=== PATIENT | male | born 1950 | race Two or more races ===

== ENCOUNTER 2018-06-04 12:22 | Emergency (ER) | payer OTHER ==
[~2018-06-04] VITALS: Ht 172.7 cm; Wt 72.6 kg
[~2018-06-04 12:22] MED LIST: AVALIDE 150-12.1 TA1
[2018-06-04] MEDS ORDERED: CIPRO500 MG PO (15:42)
[2018-06-04] MEDS ORDERED: PYRIDIUM200 MG PO (15:44)
== END 2018-06-04 16:30 | disposition home or self-care (01) ==
LOC: ER 12:22
DX: N39.0 Urinary tract infection, site not specified (principal)

== ENCOUNTER 2018-09-13 11:57 | Emergency (ER) | payer OTHER ==
[~2018-09-13] VITALS: Ht 172.7 cm; Wt 77.1 kg
[~2018-09-13 11:57] MED LIST changes: +CIPRO500 MG PO; +PYRIDIUM200 MG PO
[2018-09-13] MEDS ORDERED: [UNRECOGNIZED DRUG - OTHER] (12:27)
[2018-09-13] MEDS ORDERED: NORFLEX100MG PO (13:53)
[2018-09-13] MEDS ORDERED: IBUPROFEN800 MG PO (13:53)
== END 2018-09-13 14:09 | disposition home or self-care (01) ==
LOC: ER 11:57
DX: M54.5 Low back pain (principal)

== ENCOUNTER 2019-06-01 18:05 | Emergency (ER) | payer OTHER ==
[~2019-06-01] VITALS: Ht 172.7 cm; Wt 72.6 kg
[~2019-06-01 18:05] MED LIST changes: +IBUPROFEN800 MG PO; +NORFLEX100MG PO; +[UNRECOGNIZED DRUG - OTHER]
[2019-06-01] MEDS ORDERED: LANTUS SOL100 UNIT/1 (18:17)
== END 2019-06-01 22:22 | disposition home or self-care (01) ==
LOC: ER 18:05
DX: N39.0 Urinary tract infection, site not specified (principal)

== ENCOUNTER 2019-08-14 14:42 | Outpatient (CLI) | payer OTHER ==
[~2019-08-14 14:42] MED LIST changes: +LANTUS SOL100 UNIT/1
== END 2019-08-14 14:56 | disposition home or self-care (01) ==
LOC: RAD 14:42
DX: M54.5 Low back pain (principal)

== ENCOUNTER 2020-04-30 16:42 | Emergency (ER) | payer OTHER ==
[~2020-04-30] VITALS: Ht 172.7 cm; Wt 72.6 kg
[2020-04-30] MEDS ORDERED: FENOFIBRATE145 MG PO (17:35)
[2020-04-30] MEDS ORDERED: LANTUS SOL100 UNIT/1 SQ (17:35)
[2020-04-30] MEDS ORDERED: JENTADUETO 2.51 EAC2 PO (17:35)
[2020-04-30] MEDS ORDERED: AMLODIPINE BESYL5 MG PO (17:35)
[2020-04-30] MEDS ORDERED: SIMVASTATIN20 MG PO (17:35)
[2020-04-30] MEDS ORDERED: GLIMEPIRIDE1 M1 PO (17:36)
[2020-04-30] MEDS ORDERED: IRBESARTAN-HCT1 EAC1 PO (17:36)
== END 2020-04-30 19:08 | disposition home or self-care (01) ==
LOC: ER 16:42
DX: R30.0 Dysuria (principal)

== ENCOUNTER 2020-12-10 13:44 | Emergency (ER) | payer OTHER ==
[~2020-12-10] VITALS: Ht 172.7 cm; Wt 72.6 kg
[~2020-12-10 13:44] MED LIST changes: +AMLODIPINE BESYL5 MG PO; +FENOFIBRATE145 MG PO; +GLIMEPIRIDE1 M1 PO; +IRBESARTAN-HCT1 EAC1 PO; +JENTADUETO 2.51 EAC2 PO; +LANTUS SOL100 UNIT/1 SQ; +SIMVASTATIN20 MG PO
== END 2020-12-10 20:53 | disposition home or self-care (01) ==
LOC: ER 13:44
DX: M79.601 Pain in right arm (principal); M25.511 Pain in right shoulder

== ENCOUNTER 2021-05-20 12:24 | Outpatient (CLI) | payer OTHER | END 2021-05-20 12:51 | disposition home or self-care (01) | LOC: RAD 12:24 | DX: R07.89 Other chest pain (principal); Z11.1 Encounter for screening for respiratory tuberculosis ==

== ENCOUNTER 2021-08-22 10:45 | Outpatient (CLI) | payer OTHER | END 2021-08-22 11:09 | disposition home or self-care (01) | LOC: RAD 10:45 | DX: M25.511 Pain in right shoulder (principal) ==

== ENCOUNTER 2023-01-03 14:49 | Outpatient (CLI) | payer OTHER | END 2023-01-03 14:57 | disposition home or self-care (01) | LOC: RAD 14:49 | DX: I70.0 Atherosclerosis of aorta (principal) ==

== ENCOUNTER 2024-04-27 14:13 | Inpatient (IN) | payer OTHER ==
[~2024-04-27] VITALS: Ht 175.3 cm; Wt 81.6 kg
--- NOTE | 2024-04-27 14:34 | NUR ---
PTE REFEIRE DOLOR EN COSTADO DERECHO SE LE MATT S/V Y SE UBICA.
--- NOTE | 2024-04-27 15:28 | NUR ---
SE LE ORIENTA A PACIENTE SOBRE LA ORDEN MEDICA, REFIERE ENTENDER LAS MISMAS. SE LE MADDY LAS MUETRAS CORNELIUS LA ORDEN MEDICA.
[2024-04-27 15:45] LABS: URINE APPEARANCE Clear; URINE BILIRRUBIN Negative (NEGATIVE); URINE BLOOD Large; URINE COLOR Yellow; URINE GLUCOSE Negative (NEGATIVE); URINE KETONE Trace (NEGATIVE); URINE LEUKOCYTE Trace; URINE NITRATE Negative; URINE PROTEIN Trace (NEGATIVE); URINE UROBILINOGEN 0.2 E.U./dl
[2024-04-27 15:49] LABS: URINE BACTERIA 28.9 uL (0.0-1933); URINE CAST 0.91 uL (0.0-1.40); URINE EPITHELIAL CELLS 5.1 uL (0.0-38.8); URINE RBC 272.8 uL (0.0-20.8); URINE WBC 5.5 uL (0.0-23.2)
[2024-04-27 15:51] LABS: HEMATOCRIT 36.6 % (39.0-48.0); HEMOGLOBIN 12.4 g/dL (13-16.00); MEAN CELL VOLUME 88.2 fL (80.0-100.00); MEAN CORPUSCULAR HEMOGLOBIN 29.9 pg (27.00-32.0); PLATELET COUNT 327 K/uL (150-450); RED BLOOD COUNT 4.15 M/uL (4.00-6.00); RED CELL DISTRIBUTION WIDTH 14.2 % (11.5-14.5)
[2024-04-27 16:08] LABS: CALCIUM 9.7 mg/dL (8.5-10.1); CREATININE SERUM 1.57 mg/dL (0.70-1.30); GFR 43.52; POTASSIUM 3.94 mEq/L (3.5-5.1)
[2024-04-27] MEDS ORDERED: ONDANSETRON HCL 2 MG/ML VIAL IV ONE (16:45)
[2024-04-27] MEDS ORDERED: 0.9 % SODIUM CHLORIDE 500 ML IV ONE (16:45)
[2024-04-27] MEDS ORDERED: KETOROLAC TROMETHAMINE 15 MG VIAL IV ONE (16:45)
[2024-04-27] MEDS ORDERED: KETOROLAC TROMETHAMINE 30 MG VIAL ONE (16:52)
[2024-04-27] MEDS ORDERED: ONDANSETRON HCL 2 MG/ML VIAL ONE (16:52)
[2024-04-27] MEDS ORDERED: CIPROFLOXACIN IN 5 % DEXTROSE 400 MG/200 ML PIGGYBAG IV ONE ×2 (17:45→17:52)
[2024-04-27] MEDS ORDERED: TAMSULOSIN HCL 0.4 MG CAP PO ONE ×2 (17:45→17:51)
[2024-04-27 20:03] LABS: HEMATOCRIT 34.8 % (39.0-48.0); HEMOGLOBIN 11.8 g/dL (13-16.00); MEAN CELL VOLUME 87.5 fL (80.0-100.00); MEAN CORPUSCULAR HEMOGLOBIN 29.7 pg (27.00-32.0); MEAN CORPUSCULAR HGB CONC 33.9 g/dl (32.0-36.0); PLATELET COUNT 337 K/uL (150-450); RED BLOOD COUNT 3.98 M/uL (4.00-6.00)
[2024-04-27] MEDS ORDERED: 0.9 % SODIUM CHLORIDE 1,000 ML IV SCH (21:00)
[2024-04-27] MEDS ORDERED: KETOROLAC TROMETHAMINE 15 MG VIAL IU PRN (21:00)
[2024-04-27] MEDS ORDERED: ACETAMINOPHEN 325 MG TABLET PO PRN (21:00)
[2024-04-27] MEDS ORDERED: INSULIN LISPRO 1,000 UNIT/10 ML UNITS SUBCUTANEO PRN (21:15)
[2024-04-27] MEDS ORDERED: DEXTROSE 50 % IN WATER 0.5 G/ML DISP.SYRIN IV PRN (21:15)
[2024-04-27 21:47] VITALS: BP 125/76
[2024-04-27 23:01] VITALS: BP 122/77; O2SAT 98
[2024-04-28 04:22] VITALS: BP 123/79; O2SAT 97
[2024-04-28] MEDS ORDERED: KETOROLAC TROMETHAMINE 30 MG VIAL IV PRN (07:45)
[2024-04-28] MEDS ORDERED: ACETAMINOPHEN 500 MG GEL..CAP PO PRN (07:45)
[2024-04-28 07:51] LABS: HEMATOCRIT 32.4 % (39.0-48.0); HEMOGLOBIN 11.1 g/dL (13-16.00); MEAN CORPUSCULAR HEMOGLOBIN 29.9 pg (27.00-32.0); MEAN CORPUSCULAR HGB CONC 34.4 g/dl (32.0-36.0); PLATELET COUNT 296 K/uL (150-450); RED BLOOD COUNT 3.72 M/uL (4.00-6.00); RED CELL DISTRIBUTION WIDTH 14.2 % (11.5-14.5)
[2024-04-28] MEDS ORDERED: levoFLOXacin IN DEXTROSE 5 % 150 ML IV SCH (09:00)
[2024-04-28] MEDS ORDERED: IRBESARTAN 300 MG TABLET PO SCH (09:00)
[2024-04-28] MEDS ORDERED: HYOSCYAMINE SULFATE 0.125 MG TAB.SUBL SL SCH (09:00)
[2024-04-28] MEDS ORDERED: TAMSULOSIN HCL 0.4 MG CAP PO SCH (09:00)
[2024-04-28 09:06] LABS: ALBUMIN 3.5 gm/dL (3.4-5.0); BILIRUBIN TOTAL 0.33 mg/dL (0.3-1.2); CALCIUM 8.8 mg/dL (8.5-10.1); CREATININE SERUM 2.35 mg/dL (0.70-1.30); GFR 27.32; POTASSIUM 4.15 mEq/L (3.5-5.1); TOTAL PROTEIN 6.5 gm/dL (6.4-8.2)
[2024-04-28 09:21] VITALS: BP 134/76
[2024-04-28 17:01] VITALS: BP 135/76
[2024-04-28] MEDS ORDERED: INSULIN GLARGINE,HUM.REC.ANLOG 1,000 UNITS/10 ML UNITS SUBCUTANEO SCH (21:00)
[2024-04-28] MEDS ORDERED: AMLODIPINE BESYLATE 5 MG TABLET PO SCH (21:00)
[2024-04-29 01:48] VITALS: BP 114/70; O2SAT 97
[2024-04-29 07:49] LABS: HEMATOCRIT 29.9 % (39.0-48.0); HEMOGLOBIN 10.3 g/dL (13-16.00); MEAN CELL VOLUME 86.8 fL (80.0-100.00); MEAN CORPUSCULAR HEMOGLOBIN 29.9 pg (27.00-32.0); MEAN CORPUSCULAR HGB CONC 34.4 g/dl (32.0-36.0); PLATELET COUNT 261 K/uL (150-450); RED BLOOD COUNT 3.44 M/uL (4.00-6.00); RED CELL DISTRIBUTION WIDTH 14.4 % (11.5-14.5)
[2024-04-29 08:15] LABS: ALBUMIN 3.2 gm/dL (3.4-5.0); CALCIUM 8.4 mg/dL (8.5-10.1); CREATININE SERUM 2.39 mg/dL (0.70-1.30); GFR 26.8; PHOSPHOROUS 2.8 mg/dL (2.5-4.9); POTASSIUM 4.39 mEq/L (3.5-5.1)
[2024-04-29] MEDS ORDERED: hydrALAZINE HCL 20 MG VIAL IV PRN (08:15)
[2024-04-29 08:26] LABS: URINE APPEARANCE Clear; URINE BILIRRUBIN Negative (NEGATIVE); URINE BLOOD Negative; URINE COLOR Yellow; URINE KETONE Negative (NEGATIVE); URINE LEUKOCYTE Negative; URINE NITRATE Negative; URINE PROTEIN Negative (NEGATIVE); URINE UROBILINOGEN 0.2 E.U./dl
[2024-04-29] MEDS ORDERED: MEPERIDINE HCL/PF 50 MG/ML VIAL IV PRN (08:30)
[2024-04-29 08:32] LABS: URINE CAST 0.15 uL (0.0-1.40); URINE EPITHELIAL CELLS 0.6 uL (0.0-38.8); URINE GLUCOSE 500 MG/DL (NEGATIVE); URINE RBC 0.1 uL (0.0-20.8); URINE WBC 1.6 uL (0.0-23.2)
[2024-04-29 08:54] VITALS: BP 112/74
[2024-04-29 17:27] VITALS: BP 115/70; O2SAT 97
[2024-04-30 02:52] VITALS: BP 140/76
[2024-04-30 06:42] LABS: ALBUMIN 2.9 gm/dL (3.4-5.0); CALCIUM 7.9 mg/dL (8.5-10.1); CREATININE SERUM 2.33 mg/dL (0.70-1.30); GFR 27.6; PHOSPHOROUS 2.5 mg/dL (2.5-4.9); POTASSIUM 3.99 mEq/L (3.5-5.1)
[2024-04-30] MEDS ORDERED: levoFLOXacin IN DEXTROSE 5 % 150 ML IV SCH (09:00)
[2024-04-30 09:37] VITALS: BP 144/70; O2SAT 96
[2024-04-30 19:22] VITALS: BP 131/68
[2024-05-01 03:06] VITALS: BP 145/80; O2SAT 98
[2024-05-01] MEDS ORDERED: FUROsemide 40 MG/4 ML VIAL IV STA (08:12)
[2024-05-01 08:32] LABS: ABG PH 7.383 (7.35-7.45); ABG PO2 85.9 mmHg (80-100); ABG pCO2 31.7 mmHg (35-45); BASE EXCESS -5.4 mmol/l; BICARBONATE 18.4 mmol/l (23-25); SaO2 96.1 %; Tco2 19.4 mmol/l
[2024-05-01 08:33] LABS: allen test SATISFACTORY; o2 32 %; puncture site RADIAL RIGHT
[2024-05-01 08:54] LABS: HEMATOCRIT 33.1 % (39.0-48.0); HEMOGLOBIN 11.2 g/dL (13-16.00); MEAN CELL VOLUME 86.7 fL (80.0-100.00); MEAN CORPUSCULAR HEMOGLOBIN 29.4 pg (27.00-32.0); MEAN CORPUSCULAR HGB CONC 33.9 g/dl (32.0-36.0); PLATELET COUNT 278 K/uL (150-450); RED BLOOD COUNT 3.82 M/uL (4.00-6.00); RED CELL DISTRIBUTION WIDTH 14.7 % (11.5-14.5)
[2024-05-01 09:35] LABS: ALBUMIN 3.3 gm/dL (3.4-5.0); CALCIUM 8.7 mg/dL (8.5-10.1); CREATININE SERUM 2.12 mg/dL (0.70-1.30); GFR 30.77; PHOSPHOROUS 3.1 mg/dL (2.5-4.9); POTASSIUM 4.27 mEq/L (3.5-5.1)
[2024-05-01 09:57] VITALS: BP 148/86
[2024-05-01 10:30] LABS: URINE APPEARANCE Clear; URINE BILIRRUBIN Negative (NEGATIVE); URINE BLOOD Small; URINE COLOR Yellow; URINE KETONE Trace (NEGATIVE); URINE LEUKOCYTE Negative; URINE NITRATE Negative; URINE PROTEIN Negative (NEGATIVE); URINE UROBILINOGEN 0.2 E.U./dl
[2024-05-01 10:32] LABS: URINE BACTERIA 23.9 uL (0.0-1933); URINE CAST 1.83 uL (0.0-1.40); URINE EPITHELIAL CELLS 3.2 uL (0.0-38.8); URINE RBC 6.5 uL (0.0-20.8); URINE WBC 4.6 uL (0.0-23.2)
[2024-05-01 10:58] LABS: URINE GLUCOSE 100 MG/DL (NEGATIVE)
[2024-05-01 19:13] VITALS: BP 150/79
[2024-05-02 02:24] VITALS: BP 150/86
[2024-05-02 05:52] LABS: ALBUMIN 2.7 gm/dL (3.4-5.0); BILIRUBIN TOTAL 0.42 mg/dL (0.3-1.2); CALCIUM 8.5 mg/dL (8.5-10.1); CREATININE SERUM 2.08 mg/dL (0.70-1.30); GFR 31.46; MAGNESIUM 1.9 mg/dL (1.8-2.4); PHOSPHOROUS 3.4 mg/dL (2.5-4.9); POTASSIUM 4.29 mEq/L (3.5-5.1); TOTAL PROTEIN 5.7 gm/dL (6.4-8.2)
[2024-05-02 05:54] LABS: C-REACTIVE PROTEIN 8.71 MG/DL (0.00-0.29)
[2024-05-02 06:17] LABS: HEMATOCRIT 28.1 % (39.0-48.0); HEMOGLOBIN 9.7 g/dL (13-16.00); MEAN CELL VOLUME 88.2 fL (80.0-100.00); MEAN CORPUSCULAR HEMOGLOBIN 30.4 pg (27.00-32.0); MEAN CORPUSCULAR HGB CONC 34.5 g/dl (32.0-36.0); PLATELET COUNT 270 K/uL (150-450); RED BLOOD COUNT 3.18 M/uL (4.00-6.00); RED CELL DISTRIBUTION WIDTH 14.4 % (11.5-14.5)
[2024-05-02 09:44] VITALS: BP 158/90; O2SAT 97
[2024-05-02] MEDS ORDERED: ALBUTEROL SULFATE 3 ML/2.5 MG AMPUL.NEB IH SCH (10:21)
[2024-05-02] MEDS ORDERED: ORPHENADRINE CITRATE 30 MG/ML AMPUL IV NR (11:00)
[2024-05-02] MEDS ORDERED: hydrALAZINE HCL 50 MG TABLET PO SCH (17:00)
[2024-05-02 18:07] VITALS: BP 125/82; O2SAT 98
[2024-05-02] MEDS ORDERED: ORPHENADRINE CITRATE 30 MG/ML AMPUL IV SCH (21:00)
[2024-05-02] MEDS ORDERED: AMLODIPINE BESYLATE 10 MG TABLET PO SCH (21:00)
[2024-05-03 01:59] VITALS: BP 152/92
[2024-05-03 06:41] LABS: HEMATOCRIT 27.8 % (39.0-48.0); MEAN CELL VOLUME 86.8 fL (80.0-100.00); MEAN CORPUSCULAR HGB CONC 34.4 g/dl (32.0-36.0); PLATELET COUNT 271 K/uL (150-450); RED CELL DISTRIBUTION WIDTH 14.1 % (11.5-14.5)
[2024-05-03 07:30] LABS: HEMOGLOBIN 9.6 g/dL (13-16.00)
[2024-05-03 07:45] LABS: ALBUMIN 2.8 gm/dL (3.4-5.0); BILIRUBIN TOTAL 0.46 mg/dL (0.3-1.2); CREATININE SERUM 2.34 mg/dL (0.70-1.30); GFR 27.46; GLOBULINA 3.2 G/DL (2.4-3.5); POTASSIUM 4.42 mEq/L (3.5-5.1)
[2024-05-03] MEDS ORDERED: FUROsemide 20 MG TABLET PO SCH (09:00)
[2024-05-03 10:09] VITALS: BP 147/82
[2024-05-03 16:35] VITALS: BP 145/84
[2024-05-03 20:30] VITALS: BP 144/84
[2024-05-03] MEDS ORDERED: hydrALAZINE HCL 50 MG TABLET PO SCH (21:00)
[2024-05-04 02:17] VITALS: BP 151/97; O2SAT 100
[2024-05-04 07:59] LABS: HEMATOCRIT 26.8 % (39.0-48.0); HEMOGLOBIN 9.6 g/dL (13-16.00); MEAN CELL VOLUME 84.5 fL (80.0-100.00); MEAN CORPUSCULAR HEMOGLOBIN 30.4 pg (27.00-32.0); PLATELET COUNT 269 K/uL (150-450); RED BLOOD COUNT 3.17 M/uL (4.00-6.00); RED CELL DISTRIBUTION WIDTH 14.6 % (11.5-14.5)
[2024-05-04 08:46] LABS: ALBUMIN 2.8 gm/dL (3.4-5.0); CALCIUM 8.5 mg/dL (8.5-10.1); CREATININE SERUM 2.24 mg/dL (0.70-1.30); GFR 28.88; PHOSPHOROUS 3.9 mg/dL (2.5-4.9); POTASSIUM 4.03 mEq/L (3.5-5.1)
[2024-05-04 09:34] VITALS: BP 153/97
[2024-05-04 18:34] VITALS: BP 150/88
[2024-05-05 03:36] VITALS: BP 140/89; O2SAT 97
[2024-05-05] MEDS ORDERED: FUROsemide 20 MG/2 ML VIAL IV SCH (09:00)
[2024-05-05] MEDS ORDERED: AMLODIPINE BESYLATE 5 MG TABLET PO SCH (09:00)
[2024-05-05 09:05] VITALS: BP 150/90
[2024-05-05 18:17] VITALS: BP 160/83; O2SAT 100
[2024-05-06 02:20] VITALS: BP 170/100
[2024-05-06 04:55] VITALS: BP 160/90
[2024-05-06 09:39] LABS: HEMATOCRIT 32.5 % (39.0-48.0); HEMOGLOBIN 10.9 g/dL (13-16.00); MEAN CELL VOLUME 86.1 fL (80.0-100.00); MEAN CORPUSCULAR HEMOGLOBIN 28.8 pg (27.00-32.0); MEAN CORPUSCULAR HGB CONC 33.5 g/dl (32.0-36.0); PLATELET COUNT 425 K/uL (150-450); RED BLOOD COUNT 3.78 M/uL (4.00-6.00); RED CELL DISTRIBUTION WIDTH 14.4 % (11.5-14.5)
[2024-05-06 09:40] VITALS: BP 147/87; O2SAT 99
[2024-05-06 10:42] LABS: ALBUMIN 3.3 gm/dL (3.4-5.0); BILIRUBIN TOTAL 0.69 mg/dL (0.3-1.2); CALCIUM 9.4 mg/dL (8.5-10.1); CREATININE SERUM 2.48 mg/dL (0.70-1.30); GFR 25.68; GLOBULINA 4.1 G/DL (2.4-3.5); POTASSIUM 3.86 mEq/L (3.5-5.1); TOTAL PROTEIN 7.4 gm/dL (6.4-8.2)
[2024-05-06] MEDS ORDERED: CHLORHEXIDINE GLUCONATE 120 ML BOTTLE TOP ONE (12:50)
[2024-05-06] MEDS ORDERED: IOVERSOL 320 MG/ML - 50 ML VIAL IV ONE (12:51)
[2024-05-06] MEDS ORDERED: MEROPENEM 500 MG/VIAL VIAL IV SCH (17:00)
[2024-05-06] MEDS ORDERED: DIPHENHYDRAMINE HCL 50 MG/ML VIAL 1ML IV SCH (17:00)
[2024-05-06 18:36] VITALS: BP 120/69; O2SAT 99
[2024-05-07 02:43] VITALS: BP 120/74
[2024-05-07 09:23] VITALS: BP 134/74
[2024-05-07 17:08] VITALS: BP 103/67
[2024-05-07 18:20] LABS: HEMATOCRIT 29.2 % (39.0-48.0); HEMOGLOBIN 9.9 g/dL (13-16.00); MEAN CELL VOLUME 86.3 fL (80.0-100.00); MEAN CORPUSCULAR HEMOGLOBIN 29.3 pg (27.00-32.0); PLATELET COUNT 338 K/uL (150-450); RED BLOOD COUNT 3.38 M/uL (4.00-6.00); RED CELL DISTRIBUTION WIDTH 14.6 % (11.5-14.5)
[2024-05-07 18:48] LABS: ALBUMIN 2.4 gm/dL (3.4-5.0); BILIRUBIN TOTAL 0.43 mg/dL (0.3-1.2); CALCIUM 8.4 mg/dL (8.5-10.1); CREATININE SERUM 1.16 mg/dL (0.70-1.30); GFR 61.71; GLOBULINA 3.2 G/DL (2.4-3.5); POTASSIUM 3.51 mEq/L (3.5-5.1); TOTAL PROTEIN 5.6 gm/dL (6.4-8.2)
[2024-05-08 02:35] VITALS: BP 155/90; O2SAT 98
[2024-05-08 06:28] LABS: HEMATOCRIT 27.3 % (39.0-48.0); HEMOGLOBIN 9.3 g/dL (13-16.00); MEAN CELL VOLUME 86.5 fL (80.0-100.00); MEAN CORPUSCULAR HEMOGLOBIN 29.5 pg (27.00-32.0); MEAN CORPUSCULAR HGB CONC 34.1 g/dl (32.0-36.0); PLATELET COUNT 373 K/uL (150-450); RED BLOOD COUNT 3.16 M/uL (4.00-6.00); RED CELL DISTRIBUTION WIDTH 14.3 % (11.5-14.5)
[2024-05-08 07:22] LABS: ALBUMIN 2.3 gm/dL (3.4-5.0); BILIRUBIN TOTAL 0.19 mg/dL (0.3-1.2); CALCIUM 8.2 mg/dL (8.5-10.1); CREATININE SERUM 1.11 mg/dL (0.70-1.30); GFR 64.93; GLOBULINA 3.3 G/DL (2.4-3.5); MAGNESIUM 1.9 mg/dL (1.8-2.4); POTASSIUM 4.02 mEq/L (3.5-5.1); TOTAL PROTEIN 5.6 gm/dL (6.4-8.2)
[2024-05-08 07:23] LABS: C-REACTIVE PROTEIN 10.5 MG/DL (0.00-0.29)
[2024-05-08 09:25] VITALS: BP 127/81; O2SAT 96
[2024-05-08] MEDS ORDERED: levoFLOXacin IN DEXTROSE 5 % 150 ML IV SCH (17:00)
[2024-05-08 17:06] VITALS: BP 157/83; O2SAT 100
[2024-05-09 00:57] VITALS: BP 151/76; O2SAT 98
[2024-05-09 05:14] LABS: HEMATOCRIT 29.3 % (39.0-48.0); MEAN CELL VOLUME 86.6 fL (80.0-100.00); MEAN CORPUSCULAR HEMOGLOBIN 29.6 pg (27.00-32.0); MEAN CORPUSCULAR HGB CONC 34.2 g/dl (32.0-36.0); PLATELET COUNT 400 K/uL (150-450); RED BLOOD COUNT 3.38 M/uL (4.00-6.00); RED CELL DISTRIBUTION WIDTH 14.1 % (11.5-14.5)
[2024-05-09 08:00] VITALS: BP 154/87; O2SAT 96
== END 2024-05-09 15:49 | disposition home or self-care (01) | DRG 660 ==
LOC: ER 14:15 → MEDI 21:14
PROVIDERS: General Practice; Internal Medicine Infectious Disease; Internal Medicine Nephrology; Nurse Practitioner Family; Urology; ADMIT Internal Medicine; ATTEND Internal Medicine
PROC: BW21ZZZ Computerized Tomography (CT Scan) of Abdomen and Pelvis (ICD-10-PCS; 2024-04-27)
PROC: B24BZZZ Ultrasonography of Heart with Aorta (ICD-10-PCS; 2024-04-28)
PROC: BW4GZZZ Ultrasonography of Pelvic Region (ICD-10-PCS; 2024-04-30)
PROC: BT4JZZZ Ultrasonography of Kidneys and Bladder (ICD-10-PCS; 2024-04-30)
PROC: BW24ZZZ Computerized Tomography (CT Scan) of Chest and Abdomen (ICD-10-PCS; 2024-05-02)
PROC: BW21ZZZ Computerized Tomography (CT Scan) of Abdomen and Pelvis (ICD-10-PCS; 2024-05-02)
PROC: 0T768DZ Dilation of Right Ureter with Intraluminal Device, Via Natural or Artificial Opening Endoscopic (ICD-10-PCS; principal; 2024-05-06 13:15)
PROC: B54NZZZ Ultrasonography of Left Upper Extremity Veins (ICD-10-PCS; 2024-05-08)
PROC: B34JZZZ Ultrasonography of Left Upper Extremity Arteries (ICD-10-PCS; 2024-05-08)
DX: N39.0 Urinary tract infection, site not specified (principal); J90 Pleural effusion, not elsewhere classified; N17.9 Acute kidney failure, unspecified; N13.2 Hydronephrosis with renal and ureteral calculous obstruction; N13.30 Unspecified hydronephrosis; E78.5 Hyperlipidemia, unspecified; I35.0 Nonrheumatic aortic (valve) stenosis; R09.02 Hypoxemia; I25.10 Atherosclerotic heart disease of native coronary artery without angina pectoris; I11.9 Hypertensive heart disease without heart failure; E11.9 Type 2 diabetes mellitus without complications; Z79.4 Long term (current) use of insulin

== ENCOUNTER 2025-05-11 23:41 | Emergency (ER) | payer OTHER ==
[~2025-05-11] VITALS: Ht 172.7 cm; Wt 69.9 kg
[2025-05-12] MEDS ORDERED: KETOROLAC TROMETHAMINE 30 MG VIAL IV STA (00:55)
[2025-05-12] MEDS ORDERED: 0.9 % SODIUM CHLORIDE 1,000 ML IV STA (00:55)
[2025-05-12] MEDS ORDERED: MORPHINE SULFATE 4 MG/ML VIAL IV STA (00:56)
[2025-05-12] MEDS ORDERED: KETOROLAC TROMETHAMINE 30 MG VIAL ONE (00:58)
[2025-05-12 01:22] LABS: BASO % 0.2 % (0.1-1.2); EOS # 0.01 (0.04-0.54); EOS % 0.1 % (0.7-7.0); LYMPH # 0.53 (1.18-3.74); LYMPH % 4.1 % (19.3-53.1); MEAN PLATELET VOLUME 9.60 fl (9.4-12.4); MONO # 0.32 (0.24-0.82); MONO % 2.5 % (4.7-12.5); NEUT # 11.95 (1.56-6.13); NEUT % 92.9 % (34.0-71.1); RED CELL DISTRIBUTION WIDTH 12.9 % (11.6-14.4)
[2025-05-12 01:42] LABS: INR 1.03
[2025-05-12 01:46] LABS: ALT/SGPT 34.0 U/L (12-78); AST/SGOT 17.0 U/L (15-37); BILIRUBIN TOTAL 0.45 mg/dL (0.3-1.2); BUN CREA RATIO 19.0 (7.0-25.0); GFR 39.59; GLOBULINA 3.6 G/DL (2.4-3.5); OSMOLALITY SERUM 302.0 MOSM/KG (275-295)
[2025-05-12 01:49] LABS: CREATININE SERUM 1.7 mg/dL (0.70-1.30); GLUCOSE FASTING 279.0 mg/dL (65-100)
[2025-05-12 02:11] LABS: URINE APPEARANCE Clear; URINE BILIRRUBIN Negative (NEGATIVE); URINE BLOOD Large; URINE COLOR Yellow; URINE KETONE 15 (NEGATIVE); URINE LEUKOCYTE Negative; URINE NITRATE Negative; URINE UROBILINOGEN 0.2 E.U./dl
[2025-05-12 02:14] LABS: URINE BACTERIA 28.8 uL (0.0-1933); URINE EPITHELIAL CELLS 6.3 uL (0.0-38.8); URINE RBC 469.7 uL (0.0-20.8); URINE WBC 22.7 uL (0.0-23.2)
[2025-05-12 03:01] LABS: URINE CAST 0.43 uL (0.0-1.40); URINE GLUCOSE 500 MG/DL (NEGATIVE); URINE PROTEIN 100 (NEGATIVE); URINE YEAST MODERATE /hpf
== END 2025-05-12 05:13 | disposition home or self-care (01) ==
LOC: ER 23:41
DX: N20.1 Calculus of ureter (principal); R10.9 Unspecified abdominal pain; Z88.0 Allergy status to penicillin
CPT/HCPCS: 36415; 74176; 96365; 96366; 99284; J1885; J2270; J7030